=== PATIENT | female | born 1930 | race Hispanic/Latino ===

== ENCOUNTER 2017-09-02 17:33 | Emergency (ER) | payer OTHER, MEDICARE ==
[~2017-09-02 17:33] MED LIST: ALEN70TA47 PO; ASPI-1197 PO; CALC-1009 PO; CHOL200074 PO; CYCL30DR OU; IBUP-2077 PO; MULT-1258 PO; OMEGA XL PO; OMEP20CA10 PO; SENN1TAB6 PO; TRAM50TA4 PO; TUMERIC PO; VITA400C70 PO
[2017-09-02 21:16] LABS: BASOPHILS % (AUTO) 1.2 % (0.0-5.0); EOSINOPHILS % (AUTO) 1.6 % (0.0-8.0); HEMATOCRIT 36.2 % (36-48); LYMPHOCYTES % (AUTO) 31.2 % (21.0-51.0); MEAN CORPUSCULAR HEMOGLOBIN 33.5 pg (27.0-33.0); MEAN CORPUSCULAR HGB CONC 35.6 g/dL (32.0-36.0); MEAN CORPUSCULAR VOLUME 93.9 fL (79-99); MONOCYTES % (AUTO) 9.1 % (3.0-13.0); NEUTROPHILS % (AUTO) 56.9 % (40.0-77.0); NUCLEATED RED BLOOD CELLS 0.1 % (0.0-0.19); PLATELET COUNT (AUTO) 204 K/uL (130-400); RED BLOOD CELL COUNT(AUTO) 3.86 MIL/uL (4.00-5.50); RED CELL DISTRIBUTION WIDTH 12.9 % (11.0-15.5); WHITE BLOOD COUNT (AUTO) 6.6 K/uL (4.8-10.8)
[2017-09-02 21:31] LABS: CREATININE 0.7 mg/dL (0.5-1.5); POTASSIUM 3.5 mmol/L (3.5-5.1)
[2017-09-02 21:38] LABS: ALBUMIN 3.7 g/dL (3.5-5.0); BILIRUBIN,TOTAL 0.4 mg/dL (0.2-1.0); TOTAL PROTEIN, SERUM 7.7 g/dL (6.0-8.3)
[2017-09-02] MEDS ORDERED: METOPROLOL TARTRATE 1 MG/ML 5ML VIAL IV ONE (22:50)
== END 2017-09-03 00:12 | disposition home or self-care (01) ==
LOC: EDH 17:33
DX: R03.0 Elevated blood-pressure reading, without diagnosis of hypertension (principal); M54.30 Sciatica, unspecified side; Z88.0 Allergy status to penicillin; Z88.2 Allergy status to sulfonamides; Z88.8 Allergy status to other drugs, medicaments and biological substances; Z90.49 Acquired absence of other specified parts of digestive tract; Z98.890 Other specified postprocedural states
CPT/HCPCS: 36415; 80053; 84484; 85025; 93005; 96374; 99285; J3490

== ENCOUNTER 2017-09-03 06:24 | Day surgery (SDC) | payer OTHER, MEDICARE ==
[2017-09-02 16:09] VITALS: BP 199/82
[2017-09-02 16:10] LABS: BASOPHILS % (AUTO) 1.2 % (0.0-5.0); EOSINOPHILS % (AUTO) 1.1 % (0.0-8.0); HEMATOCRIT 35.6 % (36-48); LYMPHOCYTES % (AUTO) 29.2 % (21.0-51.0); MEAN CORPUSCULAR HEMOGLOBIN 33.7 pg (27.0-33.0); MEAN CORPUSCULAR VOLUME 93.6 fL (79-99); MONOCYTES % (AUTO) 7.9 % (3.0-13.0); NEUTROPHILS % (AUTO) 60.6 % (40.0-77.0); PLATELET COUNT (AUTO) 202 K/uL (130-400); WHITE BLOOD COUNT (AUTO) 6.1 K/uL (4.8-10.8)
[2017-09-02 16:18] LABS: CREATININE 0.8 mg/dL (0.5-1.5); POTASSIUM 4.1 mmol/L (3.5-5.1)
[~2017-09-03] VITALS: Ht 139.7 cm; Wt 64.3 kg
[2017-09-03] VITALS (12 sets, daily range): BP systolic 125–154; BP diastolic 55–88
[~2017-09-03 06:24] MED LIST changes: -CYCL30DR OU; -IBUP-2077 PO; -OMEP20CA10 PO
[2017-09-03] MEDS ORDERED: LACTATED RINGERS 1000ML 1,000 ML IV ONE (06:51)
[2017-09-03] MEDS ORDERED: CLINDAMYCIN 900 MG/D5% WATER 50 ML IV ONE (07:29)
[2017-09-03] MEDS ORDERED: CLINDAMYCIN 900 MG/D5% WATER 50 ML IV SCH (07:45)
[2017-09-03] MEDS ORDERED: LIDOCAINE HCL 1% 20 ML VIAL ONE (09:05)
[2017-09-03] MEDS ORDERED: GLYCOPYRROLATE 0.2 MG/ML 5 ML VIAL ONE (09:26)
[2017-09-03] MEDS ORDERED: PROPOFOL 10 MG/ML 20ML VIAL IV ONE (09:26)
[2017-09-03] MEDS ORDERED: FENTANYL CITRATE PF 50 MCG/1 ML 2ML VIAL ONE (09:26)
[2017-09-03] MEDS ORDERED: DEXAMETHASONE SOD PHOSPHATE 10MG/ML 1ML VIAL ONE (09:26)
[2017-09-03] MEDS ORDERED: MIDAZOLAM HCL 1 MG/ML 2ML VIAL ONE (09:26)
[2017-09-03] MEDS ORDERED: LIDOCAINE PF 2% 5ML ABBOJECT ONE (09:26)
[2017-09-03] MEDS ORDERED: OCTYL 2-CYANOACRYLATE 1 EACH TP ONE (09:51)
== END 2017-09-03 11:40 | disposition home or self-care (01) ==
LOC: DAH 06:24
PROVIDERS: ATTEND Orthopaedic Surgery
DX: T84.84XA Pain due to internal orthopedic prosthetic devices, implants and grafts, initial encounter (principal); Z79.899 Other long term (current) drug therapy; Z79.82 Long term (current) use of aspirin; K21.9 Gastro-esophageal reflux disease without esophagitis; M19.90 Unspecified osteoarthritis, unspecified site; Z96.653 Presence of artificial knee joint, bilateral; Z90.49 Acquired absence of other specified parts of digestive tract; Z88.0 Allergy status to penicillin; Z88.2 Allergy status to sulfonamides; Z91.040 Latex allergy status; Z88.8 Allergy status to other drugs, medicaments and biological substances; Z88.1 Allergy status to other antibiotic agents
CPT/HCPCS: 20680; 36415; 76000; 80048; 85025; 88300; A4930 ×2; A6223; J1100; J2001; J2250; J2704; J3490 ×3; J7120; J3010

== ENCOUNTER 2018-06-02 09:24 | Emergency (ER) | payer OTHER, MEDICARE ==
[~2018-06-02 09:24] MED LIST changes: +ALEN70TA10 PO; -ALEN70TA47 PO
[2018-06-02 11:31] LABS: APPEARANCE,URINE Clear (CLEAR); BILIRUBIN,URINE Negative (NEGATIVE); COLOR,URINE Yellow (YELLOW); GLUCOSE, URINE (UA) Negative (NEGATIVE); KETONES,URINE Trace mg/dL (NEGATIVE); LEUKOCYTE ESTERASE ,URINE Small (NEGATIVE); NITRATE,URINE Negative (NEGATIVE); OCCULT BLOOD,URINE Negative (NEGATIVE); PROTEIN,URINE Negative (NEGATIVE)
[2018-06-02 11:54] LABS: BACTERIA,URINE Rare /HPF (None Seen); MUCUS,URINE Rare LPF (None Seen); RBC,URINE None Seen /HPF (0-1); SQUAMOUS EPITHELIAL CELL,UR Few /HPF (0-2); WBC,URINE 0-1 /HPF (0-1)
== END 2018-06-02 11:44 | disposition home or self-care (01) ==
LOC: EDH 09:24
DX: G89.29 Other chronic pain (principal); M54.5 Low back pain; R53.1 Weakness; Z88.0 Allergy status to penicillin; Z88.2 Allergy status to sulfonamides; Z88.8 Allergy status to other drugs, medicaments and biological substances
CPT/HCPCS: 72128; 72131; 81001

== ENCOUNTER 2019-02-22 06:10 | Day surgery (SDC) | payer OTHER, MEDICARE ==
[~2019-02-22 06:10] MED LIST changes: -ALEN70TA10 PO; -CHOL200074 PO; +GABA-531 PO; +PANT40TA PO; -SENN1TAB6 PO; +SODIUM CHLORIDE 0.9% 1000ML 1,000 ML IV ONE; -TUMERIC PO
[2019-02-22 07:38] VITALS: BP 150/54
[2019-02-22] MEDS ORDERED: PROPOFOL 10 MG/ML 20ML VIAL IV ONE ×2 (08:53)
[2019-02-22 09:02] VITALS: BP 125/51
[2019-02-22 09:07] VITALS: BP 134/55
[2019-02-22 09:12] VITALS: BP 146/59
[2019-02-22 09:16] VITALS: BP 177/69
--- NOTE | 2019-02-22 09:36 | NUR ---
PT LEFT VIA WHEELCHAIR, INSTRUCTION GIVEN TO DAUGHTER, WITH F/U APPT.
== END 2019-02-22 09:36 ==
LOC: DAH 06:10 → ENDO 06:10
PROVIDERS: ATTEND Internal Medicine
DX: D62 Acute posthemorrhagic anemia (principal); K25.0 Acute gastric ulcer with hemorrhage; K44.9 Diaphragmatic hernia without obstruction or gangrene; K29.70 Gastritis, unspecified, without bleeding; Z79.899 Other long term (current) drug therapy; M81.0 Age-related osteoporosis without current pathological fracture; M19.90 Unspecified osteoarthritis, unspecified site; E66.9 Obesity, unspecified; K21.9 Gastro-esophageal reflux disease without esophagitis; Z88.0 Allergy status to penicillin; Z88.8 Allergy status to other drugs, medicaments and biological substances; Z88.1 Allergy status to other antibiotic agents; Z91.040 Latex allergy status; Z86.010 Personal history of colon polyps; Z68.29 Body mass index [BMI] 29.0-29.9, adult; Z85.038 Personal history of other malignant neoplasm of large intestine; Z98.890 Other specified postprocedural states; Z98.49 Cataract extraction status, unspecified eye; Z90.49 Acquired absence of other specified parts of digestive tract; Z96.653 Presence of artificial knee joint, bilateral; Z82.49 Family history of ischemic heart disease and other diseases of the circulatory system
CPT/HCPCS: 43235; A4221; A4222; A4223; A4335; A4520; A4606; A4663; J2704 ×2; J7030

== ENCOUNTER → 2020-10-31 | Outpatient (CLI) | payer OTHER, MEDICARE ==
[~2020-10-31] MED LIST changes: -ASPI-1197 PO; -SODIUM CHLORIDE 0.9% 1000ML 1,000 ML IV ONE; +VITA-164 PO; -VITA400C70 PO
[2020-10-31 10:06] LABS: CREATININE 0.7 mg/dL (0.5-1.5)
== END | disposition home or self-care (01) ==
LOC: LAB 08:27
PROVIDERS: ATTEND Otolaryngology
DX: D16.5 Benign neoplasm of lower jaw bone (principal)
CPT/HCPCS: 36415; 82565; 84520

== ENCOUNTER → 2020-11-05 | Outpatient (CLI) | payer OTHER, MEDICARE ==
[~2020-11-05] MED LIST changes: +IOHEXOL-350 75 ML VIAL IV ONE
== END | disposition home or self-care (01) ==
LOC: RAH 13:32
PROVIDERS: ATTEND Otolaryngology
DX: M84.48XA Pathological fracture, other site, initial encounter for fracture (principal); D16.5 Benign neoplasm of lower jaw bone
CPT/HCPCS: 70491; Q9967

== ENCOUNTER → 2021-01-08 | Day surgery (SDC) | payer OTHER, MEDICARE ==
[~2021-01-08] MED LIST changes: -IOHEXOL-350 75 ML VIAL IV ONE
[2021-01-08 10:02] LABS: INR 1.11 (0.85-1.15)
== END | disposition home or self-care (01) ==
LOC: DAH 09:09
PROVIDERS: ATTEND Family Medicine
DX: M87.88 Other osteonecrosis, other site (principal); Z79.01 Long term (current) use of anticoagulants; Z88.0 Allergy status to penicillin; Z88.8 Allergy status to other drugs, medicaments and biological substances
CPT/HCPCS: 36415; 36569; 71045; 76937; 85610; C1894